=== PATIENT | male | born 1955 | race Caucasian/White ===

== ENCOUNTER 2016-09-20 19:31 | Emergency (ER) | payer MEDICAID, OTHER ==
[~2016-09-20] VITALS: Ht 170.2 cm; Wt 70.3 kg
--- NOTE | 2016-09-20 19:45 | NUR ---
RA 38; "FELL OUT OF WC"; DENIES ANY NEW SX'S; C/O CHRONIC BACK PAIN/RT ARM, DENIES HEAD/ABD/BACK/CHEST TRAUMA. PT AOX4 RR EVEN AND UNLABORED. NO SOB NOTED. NAD NOTED. NO NVD AT THIS TIME. PT GOWNED AND PLACED ON MONITOR WAITING FOR MD CROCKER.
[2016-09-20] MEDS ORDERED: IV NS 0.9% 1,000 ML BAG IV ONE (20:00)
[2016-09-20] MEDS ORDERED: IV SET PRIMARY 1 EA INFUS.SET MC ONE ×2 (20:15→20:34)
[2016-09-20] MEDS ORDERED: IV NS 0.9% 1,000 ML ONE ×2 (20:15→20:34)
[2016-09-20 20:32] LABS: BASOPHILS # (AUTO) 0.1 /CMM (0.0-0.2); BASOPHILS % (AUTO) 0.7 % (0.0-2.0); EOSINOPHILS # (AUTO) 0.2 /CMM (0.0-0.7); EOSINOPHILS % (AUTO) 2.4 % (0.0-6.0); HEMATOCRIT 39 % (39-51); HEMOGLOBIN 12.9 g/dL (13.5-17.5); LYMPHOCYTES # (AUTO) 3.4 /CMM (0.8-4.8); LYMPHOCYTES % (AUTO) 41.2 % (20.0-44.0); MEAN CORPUSCULAR HEMOGLOBIN 27 PG (26.0-33.0); MEAN CORPUSCULAR HGB CONC 33 g/dl (31.0-36.0); MEAN CORPUSCULAR VOLUME 83 fL (80-96); MONOCYTES # (AUTO) 0.5 /CMM (0.1-1.30); MONOCYTES % (AUTO) 6.4 % (2.0-12.0); NEUTROPHILS # (AUTO) 4.1 /CMM (1.8-8.9); NEUTROPHILS % (AUTO) 49.3 % (43.0-81.0); PLATELET COUNT (AUTO) 361 /CMM (150-450); RDW COEFFICIENT OF VARIATION 15.5 (11.5-15.0); RED BLOOD CELL COUNT(AUTO) 4.71 MIL/uL (4.5-6.0); WHITE BLOOD COUNT (AUTO) 8.3 K/uL (4.3-11.0)
--- NOTE | 2016-09-20 20:35 | NUR ---
PT TO CT.
[2016-09-20 20:47] LABS: APPEARANCE,URINE Clear (CLEAR); BILIRUBIN,URINE Negative (NEGATIVE); BLOOD, URINE Negative Ery/uL (NEGATIVE); COLOR,URINE Yellow (YELLOW); KETONES,URINE Negative (NEGATIVE); LEUKOCYTE ESTERASE ,URINE Negative (NEGATIVE); NITRITE, URINE Negative (NEGATIVE); PROTEIN,URINE Negative (NEGATIVE); UGLUCOSE Negative (NEGATIVE); UROBILINOGEN,URINE 0.2 EU/dL (0.2)
[2016-09-20 20:59] LABS: ALBUMIN 3.3 g/dL (3.4-5.0); BILIRUBIN,DIRECT 0.2 mg/dL (0.0-0.2); BILIRUBIN,TOTAL 0.3 mg/dL (0.2-1.0); CALCIUM, SERUM 8.2 mg/dL (8.5-10.1); CREATININE 0.9 mg/dL (0.6-1.3); POTASSIUM 3.5 mmol/L (3.5-5.1); TOTAL PROTEIN, SERUM 7.3 g/dL (6.4-8.2)
[2016-09-20 21:00] LABS: CANNABINOID, URINE NEGATIVE (NEGATIVE); PHENCYCLIDINE SCREEN,URINE NEGATIVE (NEGATIVE)
--- NOTE | 2016-09-20 21:40 | NUR ---
URINE COLLECTED. CALLED LAB FOR CLINICAL TRIAL LEADER
--- NOTE | 2016-09-21 05:49 | NUR ---
IV removed. Catheter intact and site benign. Pressure and 4x4 applied to site. No bleeding noted. Patient discharged to home in stable condition. Written and verbal after care instructions given. Patient verbalizes understanding of instruction. pt d/c via personal w/c
[2016-09-21 05:50] VITALS: BP 110/58
== END 2016-09-21 05:51 | disposition home or self-care (01) ==
LOC: ER 19:33
DX: M54.9 Dorsalgia, unspecified (principal); G89.29 Other chronic pain; F10.129 Alcohol abuse with intoxication, unspecified; F17.200 Nicotine dependence, unspecified, uncomplicated; M54.30 Sciatica, unspecified side; R51 Headache; Z88.1 Allergy status to other antibiotic agents
CPT/HCPCS: 36415; 70450-TC; 80048-TC; 80076-TC; 80305; 81000-TC; 85025-TC; A4606; G0480; J7030; Z7610

== ENCOUNTER 2017-03-13 11:50 | Emergency (ER) | payer MEDICAID ==
[~2017-03-13] VITALS: Ht 188 cm; Wt 91.6 kg
--- NOTE | 2017-03-13 12:00 | NUR ---
LEFTY FROM [facility] DT BACK SPASM. PATIENT IS WHEELCHAIR BOUND. VSS. DENIES HI/SI
--- NOTE | 2017-03-13 12:21 | NUR ---
AUBREY MALIK AT BS
[2017-03-13 12:45] LABS: BASOPHILS % (AUTO) 0.4 % (0.0-2.0); EOSINOPHILS % (AUTO) 0.5 % (0.0-6.0); HEMATOCRIT 40 % (39-51); HEMOGLOBIN 12.9 g/dL (13.5-17.5); LYMPHOCYTES # (AUTO) 1.2 /CMM (0.8-4.8); LYMPHOCYTES % (AUTO) 23.4 % (20.0-44.0); MEAN CORPUSCULAR HEMOGLOBIN 27 PG (26.0-33.0); MEAN CORPUSCULAR HGB CONC 32 g/dl (31.0-36.0); MEAN CORPUSCULAR VOLUME 83 fL (80-96); MONOCYTES # (AUTO) 0.1 /CMM (0.1-1.30); MONOCYTES % (AUTO) 1.3 % (2.0-12.0); NEUTROPHILS # (AUTO) 3.7 /CMM (1.8-8.9); NEUTROPHILS % (AUTO) 74.4 % (43.0-81.0); PLATELET COUNT (AUTO) 316 /CMM (150-450); RDW COEFFICIENT OF VARIATION 19.6 (11.5-15.0); RED BLOOD CELL COUNT(AUTO) 4.86 MIL/uL (4.5-6.0)
[2017-03-13] MEDS ORDERED: MORPHINE SULFATE INJ 2 MG/ML DISP.SYRIN IM ONE (13:00)
[2017-03-13 13:04] LABS: CALCIUM, SERUM 8.8 mg/dL (8.5-10.1); CREATININE 0.9 mg/dL (0.6-1.3); INR 0.99 (0.87-1.13); POTASSIUM 4.2 mmol/L (3.5-5.1); PROTHROMBIN TIME 10.3 SECS (9.5-12.7)
[2017-03-13] MEDS ORDERED: MORPHINE SULFATE INJ 4 MG/ML DISP.SYRIN ONE (13:07)
[2017-03-13 13:11] LABS: ALBUMIN 3.8 g/dL (3.4-5.0); BILIRUBIN,DIRECT 0.3 mg/dL (0.0-0.2); BILIRUBIN,TOTAL 0.8 mg/dL (0.2-1.0); TOTAL PROTEIN, SERUM 8.1 g/dL (6.4-8.2)
[2017-03-13 13:13] LABS: SALICYLATE 0.8 mg/dL (2.8-20.0)
[2017-03-13 13:14] LABS: APPEARANCE,URINE Clear (CLEAR); BILIRUBIN,URINE Negative (NEGATIVE); BLOOD, URINE Trace-intact Ery/uL (NEGATIVE); COLOR,URINE Yellow (YELLOW); KETONES,URINE Negative (NEGATIVE); LEUKOCYTE ESTERASE ,URINE Negative (NEGATIVE); NITRITE, URINE Negative (NEGATIVE); PROTEIN,URINE Negative (NEGATIVE); UGLUCOSE Negative (NEGATIVE); UROBILINOGEN,URINE 0.2 EU/dL (0.2)
[2017-03-13 13:16] LABS: RBC,URINE 0-2 /HPF (0-2); WBC,URINE 0-2 /HPF (0-3)
[2017-03-13 13:17] LABS: BACTERIA,URINE Rare /HPF (None Seen); SQUAMOUS EPITHELIAL CELL,UR Few /HPF (None Seen)
--- NOTE | 2017-03-13 14:34 | NUR ---
PATIENT IS GOING TO [facility] [place] FOR VOLUNTARY ADMISSION. CALL FOR REPORT. ACCEPTING PSYCH MD FARMER.
--- NOTE | 2017-03-13 14:58 | NUR ---
REPORT GIVEN TO ARASH. PT AWAITING TRANSPORT.
--- NOTE | 2017-03-13 15:37 | NUR ---
TRANSFERED TO [facility]. STABLE CONDITION.
[2017-03-13 15:44] VITALS: BP 112/70
== END 2017-03-13 15:46 ==
LOC: ER 11:52
DX: M54.41 Lumbago with sciatica, right side (principal); F17.200 Nicotine dependence, unspecified, uncomplicated; R79.1 Abnormal coagulation profile; Z02.89 Encounter for other administrative examinations; Z88.1 Allergy status to other antibiotic agents
CPT/HCPCS: 36415; 80048; 80076; 80305; 80329; 81001; 85025; 85730; 96372; 99285; A4606; G0480 ×2; J2270; Z7610; 81000-TC

== ENCOUNTER 2017-08-03 14:41 | Emergency (ER) | payer MEDICAID ==
[~2017-08-03] VITALS: Ht 180.3 cm; Wt 83.9 kg
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
[2017-08-03 16:15] VITALS: BP 139/85
== END 2017-08-03 16:16 | disposition left against medical advice (07) ==
LOC: ER 14:42
DX: F10.129 Alcohol abuse with intoxication, unspecified (principal); R07.89 Other chest pain; F17.200 Nicotine dependence, unspecified, uncomplicated; Z88.1 Allergy status to other antibiotic agents
CPT/HCPCS: A4606; Z7610

== ENCOUNTER 2017-08-04 06:15 | Emergency (ER) | payer MEDICAID ==
[~2017-08-04] VITALS: Ht 188 cm; Wt 93.0 kg
[2017-08-04 06:28] VITALS: BP 139/90
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
--- NOTE | 2017-08-04 06:31 | NUR ---
DR. AG AT BEDSIDE FOR EVAL
[2017-08-04] MEDS ORDERED: KETOROLAC TROMETHAMINE INJ 30 MG/ML VIAL ONE (06:33)
--- NOTE | 2017-08-04 06:40 | NUR ---
CALLED LAB FOR BLOOD DRAW
[2017-08-04] MEDS ORDERED: KETOROLAC TROMETHAMINE INJ 30 MG/ML VIAL IM ONE (07:00)
--- NOTE | 2017-08-04 07:01 | NUR ---
LAB AT BEDSIDE FOR BLOOD DRAW
[2017-08-04 07:14] LABS: BASOPHILS # (AUTO) 0.2 /CMM (0.0-0.2); BASOPHILS % (AUTO) 3.4 % (0.0-2.0); EOSINOPHILS # (AUTO) 0.1 /CMM (0.0-0.7); EOSINOPHILS % (AUTO) 1.3 % (0.0-6.0); HEMATOCRIT 42 % (39-51); HEMOGLOBIN 13.5 g/dL (13.5-17.5); LYMPHOCYTES # (AUTO) 2.4 /CMM (0.8-4.8); LYMPHOCYTES % (AUTO) 38.2 % (20.0-44.0); MEAN CORPUSCULAR HEMOGLOBIN 25 PG (26.0-33.0); MEAN CORPUSCULAR HGB CONC 32 g/dl (31.0-36.0); MEAN CORPUSCULAR VOLUME 77 fL (80-96); MONOCYTES # (AUTO) 0.7 /CMM (0.1-1.30); MONOCYTES % (AUTO) 10.6 % (2.0-12.0); NEUTROPHILS # (AUTO) 2.9 /CMM (1.8-8.9); NEUTROPHILS % (AUTO) 46.5 % (43.0-81.0); PLATELET COUNT (AUTO) 547 /CMM (150-450); RDW COEFFICIENT OF VARIATION 23.8 (11.5-15.0); WHITE BLOOD COUNT (AUTO) 6.2 K/uL (4.3-11.0)
--- NOTE | 2017-08-04 07:17 | NUR ---
REPORT GIVEN TO NICKI KLEIN FOR MARY ANNE
[2017-08-04 07:24] LABS: CALCIUM, SERUM 8.1 mg/dL (8.5-10.1); CREATININE 0.9 mg/dL (0.6-1.3); POTASSIUM 3.3 mmol/L (3.5-5.1)
--- NOTE | 2017-08-04 07:28 | NUR ---
PT TO CT.
[2017-08-04 07:30] LABS: ALBUMIN 3.6 g/dL (3.4-5.0); BILIRUBIN,DIRECT 0.3 mg/dL (0.0-0.2); BILIRUBIN,TOTAL 0.7 mg/dL (0.2-1.0); TOTAL PROTEIN, SERUM 8.6 g/dL (6.4-8.2)
[2017-08-04 07:35] LABS: SALICYLATE 2.4 mg/dL (2.8-20.0)
--- NOTE | 2017-08-04 08:00 | NUR ---
MAGNOLIA CALLED BY [facility] EMT TO REPORT THAT PATIENT VERBALIZED HI TO DR AG.
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
[2017-08-04] MEDS ORDERED: DILTIAZEM HCL 50 MG IV IV ONE (08:30)
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
== END 2017-08-04 12:35 | disposition left against medical advice (07) ==
LOC: ER 06:24
DX: M54.40 Lumbago with sciatica, unspecified side (principal); G89.29 Other chronic pain; M48.061 Spinal stenosis, lumbar region without neurogenic claudication; M51.36 Other intervertebral disc degeneration, lumbar region; F10.10 Alcohol abuse, uncomplicated; F17.200 Nicotine dependence, unspecified, uncomplicated; Z88.1 Allergy status to other antibiotic agents
CPT/HCPCS: 36415; 72131-TC; 80048-TC; 80076-TC; 85025-TC; A4606; G0480; J1885; Z7610